=== PATIENT | male | born 1985 | race Caucasian/White ===

== ENCOUNTER 2019-03-20 14:33 | Outpatient (CLI) | payer BC ==
[~2019-03-20 14:33] MED LIST: Gadobenate Dimeglumine 529 MG/1 ML (20ML VIAL) ONE
--- NOTE | 2019-03-20 16:56 | MRI ---
PRE AND POSTCONTRAST ENHANCED MRI BRAIN: HISTORY: Follow-up cervical medullary junction mass. Multiplanar, multisequence pre and postcontrast enhanced MRI images brain obtained. Comparison made to previous exam from 09/15/2018, 05/16/2018, and 03/09/2018. FINDINGS: There is an expansile mass at the C1 spinal cord. The inferior most aspect is not visualized. This le naren would best be evaluated using pre and postcontrast enhanced MRI of the cervical spine rather than brain MRI. The lesion is not significantly changed since previous comparison multiple MRIs. No evidence of hydrocephalus seen. No other intracranial masses or lesions seen. No evidence of diffusion restriction seen. No other intracranial mass lesions noted. 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 Transcribed Date/Time: 03/20/2019 5:05 PM
== END 2019-03-20 14:34 | disposition home or self-care (01) ==
LOC: TBSIIMAG 14:33
PROVIDERS: ATTEND Internal Medicine Hematology & Oncology
DX: Z48.3 Aftercare following surgery for neoplasm (principal); G95.89 Other specified diseases of spinal cord; Z85.841 Personal history of malignant neoplasm of brain
CPT/HCPCS: 70553; A9577

== ENCOUNTER 2019-08-23 09:35 | Outpatient (CLI) | payer BC ==
[2019-08-23] MEDS ORDERED: Gadobenate Dimeglumine 529 MG/1 ML (20ML VIAL) ONE (09:55)
--- NOTE | 2019-08-23 12:52 | MRI ---
MRI BRAIN WITH AND WITHOUT CONTRAST: DATE: 08/23/2019. 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 Numbness in mouth and tongu e. COMPARISON: 03/20/2019. TECHNIQUE: Multiple sequences obtained in axial, sagittal, and coronal planes; pre and post IV injection of gado linium-based contrast agent: 18 mL MultiHance. FINDINGS: The ventricles are normal in size and configuration. There is no intraaxial signal abnormality, rest ricted diffusion, mass, midline shift or any other mass effect, recent intraaxial hemorrhage, or extr aaxial fluid collection. The brainstem, including medulla, are normal, with the possible exception o f the cervicomedullary junction. There is an expansile pathologic process involving the upper spinal cord at the C1 level, incompletely imaged, resulting in transverse and cross-sectional diameters of the upper spinal cord of 2.0 x 1.7 cm. There is no associated abnormal intramedullary enhancement at this level. There is a developmental venous anomaly in the left posterior paramedian cerebrum. Ther e is no abnormal intraaxial enhancement. There is no interval change overall since 03/20/2019. There is no cerebellar tonsillar ectopia. IMPRESSION: 1. Expansile abnormal appearance involving the uppermost cervical spinal cord at the C1 level, which would be better evaluated with dedicated MRI of the cervical spine with and without contrast. No int erval change. 2. The brain is essentially normal. jn[] POS: [facility]
== END 2019-08-23 09:36 | disposition home or self-care (01) ==
LOC: TBSIIMAG 09:35
PROVIDERS: ATTEND Internal Medicine Hematology & Oncology
DX: C71.7 Malignant neoplasm of brain stem (principal)
CPT/HCPCS: 70553; A9577